=== PATIENT | female | born 1960 | race Caucasian/White ===

== ENCOUNTER 2019-12-15 22:32 | Emergency (ER) | payer BC ==
[~2019-12-15] VITALS: Ht 167 cm; Wt 60.5 kg
--- OUTSIDE RECORDS SUMMARY | 2019-12-15 22:39 | XMS REPORT | Continuity of Care Document ---
Author Organization Unknown Address Unknown Phone Unavailable Allergies There is no data. Medications There is no data. Problems There is no data. Procedures There is no data. Results Test Result Range LIPID PANEL - 11/17/18 08:32 CHOLESTEROL, TOTAL 209 mg/dL <200 HDL CHOLESTEROL 74 mg/dL >50 TRIGLYCERIDES 74 mg/dL <150 LDL-CHOLESTEROL 118 mg/dL (calc) NRG CHOL/HDLC RATIO 2.8 (calc) <5.0 NON HDL CHOLESTEROL 135 mg/dL (calc) <13 0 CMP - 11/17/18 08:32 GLUCOSE 89 mg/dL 65-99 UREA NITROGEN (BUN) 13 mg/dL 7-25 CREATININE 0.92 mg/dL 0.50-0.99 eGFR NON-AFR. BANGLADESHI 68 mL/min/1.73m2 > OR = 60 eGFR 78 mL/min/1.73m2 > OR = 60 BUN/CREATININE RATIO NOT APPLICABLE (calc) 6-22 SODIUM 134 mmol/L 135-146 POTASSIUM 3.8 mmol/L 3.5-5.3 CHLORIDE 98 mmol/L 98-110 CARBON DIOXIDE 29 mmol/L 20-32 CALCIUM 9.3 mg/dL 8.6-10.4 PROTEIN, TOTAL 6.7 g/dL 6.1-8.1 ALBUMIN 4.5 g/dL 3.6-5.1 GLOBULIN 2.2 g/dL (calc) 1.9-3.7 ALBUMIN/GLOBULIN RATIO 2.0 (calc) 1.0-2. 5 BILIRUBIN, TOTAL 0.6 mg/dL 0.2-1.2 ALKALINE PHOSPHATASE 41 U/L 33-130 AST 20 U/L 10-35 ALT 11 U/L 6-29 Complete blood count (CBC) with automate d white blood cell (WBC) differential - 12/15/19 09:32 Blood leukocytes automated count (number/volume) 4.1 10*3/uL 4.3-11.0 Blood erythrocytes automated count (number/volume) 4.36 10*6/uL 4.35-5.85 Venous blood hemoglobin measurement (mass/volume) 12.6 g/dL 11.5-16.0 Blood hematocrit (volume fraction) 38 % 35-52 Automated erythrocyte mean corpuscular volume 87 [ foz_us] 80-99 Automated erythrocyte mean corpuscular h emoglobin (mass per erythrocyte) 29 pg 25-34 Automated erythrocyte mean corpuscular h emoglobin concentration measurement (mass/volume) 33 g/dL 32-36 Automated erythrocyte distribution width ratio 12. 8 % 10.0- 14.5 Automated blood platelet count (count/volume) 245 10*3/uL 130-400 Automated blood platelet mean volume measurement 10.7 [foz_us] 7.4-10.4 Automated blood neutrophils/100 leukocytes 64 % 42-75 Automated blood lymphocytes/100 leukocytes 22 % 12-44 Blood monocytes/100 leukocytes 11 % 0-12 Automated blood eosinophils/100 leukocytes 2 % 0-10 Automated blood basophils/100 leukocytes 1 % 0-10 Blood neutrophils automated count (number/volume) 2.6 10*3 1.8-7.8 Blood lymphocytes automated count (number/volume) 0.9 10*3 1.0-4.0 Blood monocytes automated count (number/volume) 0. 5 10*3 0.0-1.0 Automated eosinophil count 0.1 10*3/uL 0 .0-0.3 Automated blood basophil count (count/volume) 0.1 10*3/uL 0.0-0.1 Comprehensive metabolic panel - 12/15/19 09:32 Serum or plasma sodium measurement (moles/volume) 131 mmol/L 135-145 Serum or plasma potassium measurement (moles/volume) 4.8 mmol/L 3.6-5.0 Serum or plasma chloride measurement (moles/volume) 92 mmol/L 98-107 Carbon dioxide 27 mmol/L 21-32 Serum or plasma anion gap determination (moles/volume) 12 mmol/L 5-14 Serum or plasma urea nitrogen measurement (mass/volume ) 7 mg/dL 7-18 Serum or plasma creatinine measurement (mass/volume) 0.91 mg/dL 0.60-1.30 Serum or plasma urea nitrogen/creatinine mass ratio 8 NRG Serum or plasma creatinine measurement w ith calculation of estimated glomerular filtration rate > NRG Serum or plasma glucose measurement (mass/volume) 108 mg/dL 70-105 Serum or plasma calcium measurement (mass/volume) 9.4 mg/dL 8.5-10.1 Serum or plasma total bilirubin measurement (mass/volu me) 0.5 mg/dL 0.1-1.0 Serum or plasma alkaline phosphatase owen surement (enzymatic activity/volume) 55 U/L 40-136 Serum or plasma aspartate aminotransfera se measurement (enzymatic activity/volume) 20 U/L 5-34 Serum or plasma alanine aminotransferase measurement (enzymatic activity/volume) 7 U/L 0-55 Serum or plasma protein measurement (mass/volume) 7.4 g/dL 6.4-8.2 Serum or plasma albumin measurement (mass/volume) 4.6 g/dL 3.2-4.5 Lipid 1996 panel - 12/15/19 09:32 Serum or plasma triglyceride measurement (mass/volume) 51 mg/dL <150 Serum or plasma cholesterol measurement (mass/volume) 197 mg/dL < 200 Serum or plasma cholesterol in HDL measurement (mass/v olume) 75 mg/dL 40-60 Cholesterol in LDL [mass/volume] in serum or plasma by direct assay 116 mg/dL 1-129 Serum or plasma cholesterol in VLDL measurement (mass/ volume) 10 mg/dL 5-40 Encounters ACCT No. Visit Date/Time Discharge Status Pt. Type Provider Facility Loc./Unit Complaint [id number] 11/23/2018 10:15:00 11/23/2018 23:59: 59 CLS Outpatient [facility] [id number] 11/17/2018 08:15:00 Document Registration [id number] 12/15/2019 22:34:[address] Emergency LUIS MAIN DO [facility] ER FS UPPER BACK PAIN/TIGHTING [id number] 12/15/2019 09:11:[address] Outpatient CHUN HADLEY MD [facility] LAB FS ANNUAL PHYSICAL EXAM
--- NOTE | 2019-12-15 23:08 | ED General ---
General Chief Complaint: General Problems/Pain Stated Complaint: UPPER BACK PAIN/TIGHTING Source of Information: Patient Exam Limitations: No Limitations History of Present Illness Date Seen by Provider: December 15, 2019 Time Seen by Provider: 22:50 Initial Comments 59-year-old female presents to the emergency room for evaluation of a posterior chest tightness that she's noticed on her back between her scapula since the early afternoon. Patient states that she has had no trauma and she's had no prior history of cardiac abnormalities. She is concerned about the discomfort. She has had a previous evaluation for possible cholecystitis with cholelithiasis and has a gallbladder ultrasound scheduled for 6 days from now. Patient has no history of previous cardiac problems or stents. She has no history of falls injuring her back. She is a very thin woman without any history of recent trauma. Patient has given informed consent for diagnostic and therapeutic services. She states his symptoms of discomfort in her epigastrium and right upper quadrant have been going on now for the past month and her physician is pursuing with a gallbladder sonogram. Timing/Duration: 12 Hours Severity: Moderate (midposterior back) Modifying Factors: improves with Movement Associated Systoms: Chest Pain (posterior chest discomfort "it's not really pain". Between the scapula. This is unassociated with physical activity) Allergies and Home Medications Allergies Coded Allergies: codeine (Verified Allergy, Unknown, 12/15/19) Patient Home Medication List Home Medication List Reviewed: Yes Review of Systems Review of Systems Constitutional: see HPI, other (feeling of discomfort between her scapula posteriorly no anterior chest wall pain. Patient does have a history of swelling in her right lower extremity but no significant discomfort or change recently. She denies any history of DVT or pulmonary emboli.) EENTM: no symptoms reported Respiratory: no symptoms reported Cardiovascular: chest pain (posterior discomfort between his scapula patient was told she has a leaky valve in her heart but no murmurs were auscultated on this examination), other (patient has a very thin build) Gastrointestinal: RUQ (discomfort chronically has been evaluated for gallbladder disease and has a gallbladder sonogram scheduled in 6 days) Genitourinary: no symptoms reported Musculoskeletal: back pain (midthoracic back discomfort between his scapula no history of trauma no radiculopathy) Skin: no symptoms reported Psychiatric/Neurological: Anxiety (secondary to the onset of posterior back discomfort) Hematologic/Lymphatic: No Symptoms Reported Immunological/Allergic: no symptoms reported Past [id number]-Jziodf Hx Past Med/Social Hx: Reviewed Nursing Past Med/Soc Hx Patient Social History Alcohol Use: Denies Use Recreational Drug Use: No Smoking Status: Never a Smoker 2nd Hand Smoke Exposure: No Recent Foreign Travel: No Contact w/Someone Who Travel: No Recent Hopitalizations: No Physical Abuse: No Sexual Abuse: No Past Medical History Surgeries: No Respiratory: No Cardiac: No Neurological: No Genitourinary: No Gastrointestinal: No Musculoskeletal: No Endocrine: No HEENT: No Cancer: No Psychosocial: No Integumentary: No Blood Disorders: No Physical Exam Vital Signs Vital Signs - First Documented 12/15/19 22:48 Temp 36.6 Pulse 97 Resp 16 B/P (MAP) 167/100 (122) Pulse Ox 100 O2 Delivery Room Air Capillary Refill : Less than 2 seconds Height, Weight, BMI Height: '" Weight: lbs. oz. kg; BMI Method: General Appearance: WD/WN, Anxious (about discomfort in her mid back posteriorl y), Mild Distress Eyes: Bilateral Eye Normal Inspection, Bilateral Eye PERRL, Bilateral Eye EOMI HEENT: PERRL/EOMI, Normal ENT Inspection, Pharynx Normal Neck: Full Range of Motion, Normal Inspection, Non Tender, Supple Respiratory: Chest Non Tender, Lungs Clear, Normal Breath Sounds, No Accessory Muscle Use, No Respiratory Distress Cardiovascular: Regular Rate, Rhythm, No Gallop, No JVD, No Murmur, Normal Peripheral Pulses, Other (left lower extremity with minimal edema 1+ over 4 compared to the right no evidence of DVT negative Homans) Gastrointestinal: Normal Bowel Sounds, No Organomegaly, No Pulsatile Mass, Non Tender, Soft, Other (history of right upper quadrant discomfort and is being evaluated for gallbladder disease with sonogram in 6 days) Back: Normal Inspection, No CVA Tenderness, No Vertebral Tenderness (has diffuse mid dorsal discomfort between the scapula. No point tenderness on the spinous processes) Extremity: Normal Capillary Refill, Normal Inspection, Normal Range of Motion, Non Tender, No Calf Tenderness, Pedal Edema (1+ over 4 on the left lower extremity) Neurologic/Psychiatric: Alert, Oriented x3, No Motor/Sensory Deficits, Normal Mood/Affect, laboratory supervisor II-XII Norm as Tested Reflexes: 2+ Bicep (R), 2+ Bicep (L), 2+ Knee (R), 2+ Knee (L) Skin: Normal Color, Warm/Dry Lymphatic: No Adenopathy Progress/Results/Core Measures Suspected Sepsis SIRS Temperature: Pulse: Respiratory Rate: Laboratory Tests 12/15/19 23:13: White Blood Count 5.4 Blood Pressure / Mean: Laboratory Tests 12/15/19 23:13: Creatinine 0.77, Platelet Count 233, Total Bilirubin 0.5 Results/Orders Lab Results Laboratory Tests Test 12/15/19 23:13 12/16/19 01:05 Range/Units White Blood Count 5.4 4.3-11.0 10^3/uL Red Blood Count 4.31 L 4.35-5.85 10^6/uL Hemoglobin 12.7 11.5-16.0 G/DL Hematocrit 38 35-52 % Mean Corpuscular Volume 88 80-99 FL Mean Corpuscular Hemoglobin 30 25-34 PG Mean Corpuscular Hemoglobin Concent 33 32-36 G/DL Red Cell Distribution Width 12.8 10.0-14.5 % Platelet Count 233 130-400 10^3/uL Mean Platelet Volume 10.8 H 7.4-10.4 FL Neutrophils (%) (Auto) 70 42-75 % Lymphocytes (%) (Auto) 21 12-44 % Monocytes (%) (Auto) 8 0-12 % Eosinophils (%) (Auto) 1 0-10 % Basophils (%) (Auto) 1 0-10 % Neutrophils # (Auto) 3.8 1.8-7.8 X 10^3 Lymphocytes # (Auto) 1.1 1.0-4.0 X 10^3 Monocytes # (Auto) 0.4 0.0-1.0 X 10^3 Eosinophils # (Auto) 0.1 0.0-0.3 10^3/uL Basophils # (Auto) 0.0 0.0-0.1 10^3/uL Neutrophils % (Manual) 75 % Lymphocytes % (Manual) 17 % Monocytes % (Manual) 4 % Eosinophils % (Manual) 4 % Sodium Level 124 *L 135-145 MMOL/L Potassium Level 4.1 3.6-5.0 MMOL/L Chloride Level 86 L 98-107 MMOL/L Carbon Dioxide Level 21 21-32 MMOL/L Anion Gap 17 H 5-14 MMOL/L Blood Urea Nitrogen 8 7-18 MG/DL Creatinine 0.77 0.60-1.30 MG/DL Estimat Glomerular Filtration Rate > 60 BUN/Creatinine Ratio 10 Glucose Level 120 H 70-105 MG/DL Calcium Level 9.3 8.5-10.1 MG/DL Corrected Calcium 8.5-10.1 MG/DL Magnesium Level 1.9 1.6-2.4 MG/DL Total Bilirubin 0.5 0.1-1.0 MG/DL Aspartate Amino Transf (AST/SGOT) 21 5-34 U/L Alanine Aminotransferase (ALT/SGPT) 11 0-55 U/L Alkaline Phosphatase 55 40-136 U/L Troponin I < 0.30 < 0.30 <0.30 NG/ML Total Protein 7.4 6.4-8.2 GM/DL Albumin 4.6 H 3.2-4.5 GM/DL Lipase 31 8-78 U/L My Orders Orders - LUIS MAIN DO Chest Pa/Lat (2 View) (12/15/19 23:00) Cbc And Manual Diff (12/15/19 23:00) Comprehensive Metabolic Panel (12/15/19 23:00) Troponin I Fs (12/15/19 23:00) Urinalysis (12/15/19 23:00) Lipase (12/15/19 23:00) Magnesium (12/15/19 23:00) Ns Iv 1000 Ml (Sodium Chloride 0.9%) (12/16/19 00:00) Ekg Tracing (12/15/19 23:50) Ekg Tracing (12/15/19 23:51) Ed Iv/Invasive Line Start (12/15/19 23:51) Troponin I Fs (12/16/19 01:00) Medications Given in ED Current Medications Medications Dose Ordered Sig/Kae Route Start Time Stop Time Status Last Admin Dose Admin Sodium Chloride 1,000 ml @ 100 mls/hr Q10H ONCE IV 12/16/19 00:00 12/16/19 09:59 12/16/19 00:01 100 MLS/HR Vital Signs/I&O 12/15/19 22:48 Temp 36.6 Pulse 97 Resp 16 B/P (MAP) 167/100 (122) Pulse Ox 100 O2 Delivery Room Air Capillary Refill : Progress Note : Time: 23:49 Progress Note Patient evaluation reveals a significant hyponatremia of 124. Patient also has a very elongated chest and no signs of abnormality on chest x-ray but a vertical heart. Patient will receive 1 L of normal saline and EKG is also been ordered. Departure Impression Primary Impression: Hyponatremia Additional Impressions: Chronic cholecystitis Atypical chest pain Disposition: 01 HOME, SELF-CARE Condition: Improved Departure-Patient Inst. Decision time for Depature: 01:45 Referrals: CHUN HADLEY MD (PCP/Family) Primary Care Physician Patient Instructions: Chest Pain That Is Not Caused by the Heart (DC), Gallstones (DC), Hyponatremia (DC) Add. Discharge Instructions: 59-year-old female with posterior chest wall pain and this could be related to acute on chronic cholecystitis. Patient is having a gallbladder sonogram in 5 more days. She also had significant hyponatremia with a 124 and has been given normal saline and will increase her sodium intake for the next 3 days. She will follow-up with Dr. Hadley from ongoing care. The patient had negative troponin 2 an EKG that was normal with the exception of a mild sinus arrhythmia. Patient has changed her diet possibly an reaction to possible gallbladder disease. She will continue to monitor her dietary intake and follow-up with Dr. Hadley. All discharge instructions reviewed with patient and/or family. Voiced understanding. Copy Copies To 1: CHUN HADLEY MD, ANTHONY H DO December 15, 2019 23:08
[2019-12-15 23:20] LABS: HEMATOCRIT 38 % (35-52); HEMOGLOBIN 12.7 G/DL (11.5-16.0); LYMPHOCYTES % (AUTO) 21 % (12-44); MEAN CORPUSCULAR HEMOGLOBIN 30 PG (25-34); MEAN CORPUSCULAR HGB CONC 33 G/DL (32-36); MEAN CORPUSCULAR VOLUME 88 FL (80-99); MEAN PLATELET VOLUME 10.8 FL (7.4-10.4); MONOCYTES % (AUTO) 8 % (0-12); NEUTROPHILS % (AUTO) 70 % (42-75); PLATELET COUNT 233 10^3/uL (130-400); RED CELL DISTRIBUTION WIDTH 12.8 % (10.0-14.5); WHITE BLOOD COUNT 5.4 10^3/uL (4.3-11.0)
[2019-12-15 23:21] LABS: BASOPHILS % (AUTO) 1 % (0-10); EOSINOPHILS # (AUTO) 0.1 10^3/uL (0.0-0.3); EOSINOPHILS % (AUTO) 1 % (0-10); LYMPHOCYTES # (AUTO) 1.1 X 10^3 (1.0-4.0); MONOCYTES # (AUTO) 0.4 X 10^3 (0.0-1.0); NEUTROPHILS # (AUTO) 3.8 X 10^3 (1.8-7.8)
[2019-12-15 23:36] LABS: EOSINOPHILS % (MANUAL) 4 %; LYMPHOCYTES % (MANUAL) 17 %; MONOCYTES % (MANUAL) 4 %; NEUTROPHILS % (MANUAL) 75 %
[2019-12-15 23:43] LABS: ALANINE AMINOTRANSFERASE 11 U/L (0-55); ALKALINE PHOSPHATASE 55 U/L (40-136); BILIRUBIN,TOTAL 0.5 MG/DL (0.1-1.0); BUN/CREATININE RATIO 10; CALCIUM 9.3 MG/DL (8.5-10.1); CARBON DIOXIDE 21 MMOL/L (21-32); CHLORIDE 86 MMOL/L (98-107); CREATININE SERUM 0.77 MG/DL (0.60-1.30); GFR ESTIMATED > 60; GLUCOSE 120 MG/DL (70-105); MAGNESIUM 1.9 MG/DL (1.6-2.4); POTASSIUM 4.1 MMOL/L (3.6-5.0)
[2019-12-15 23:44] LABS: ALBUMIN 4.6 GM/DL (3.2-4.5); LIPASE 31 U/L (8-78); TOTAL PROTEIN 7.4 GM/DL (6.4-8.2)
[2019-12-15 23:45] LABS: SODIUM 124 MMOL/L (135-145)
[2019-12-16] MEDS ORDERED: NS IV 1000 ML 1,000 ML IV ONE
[2019-12-16 01:51] VITALS: BP 144/93
--- NOTE | 2019-12-16 05:44 | Diagnostic Imaging Report ---
CLINICAL INDICATION: Patient with pain between shoulder blades. EXAM: Portable chest x-ray upright view. COMPARISONS: None. FINDINGS: Lungs/pleura: Lungs are clear. There is no pneumothorax. There is no pleural effusion. Mediastinum: Unremarkable. Pulmonary vasculature: Unremarkable. Heart: Unremarkable. Bones/extrathoracic soft tissue: Unremarkable. IMPRESSION: There is no radiographic evidence of acute cardiopulmonary process. Dictated by: Dictated on workstation # [id number]
== END 2019-12-16 02:01 | disposition home or self-care (01) ==
LOC: EDUNIT# 22:32 → ER FS 22:34
DX: E87.1 Hypo-osmolality and hyponatremia (principal); K81.1 Chronic cholecystitis; R07.89 Other chest pain; Z88.5 Allergy status to narcotic agent
CPT/HCPCS: 36415; 71046; 80053; 83690; 83735; 84484; 85007; 85027; 93005

== ENCOUNTER → 2019-12-15 | Outpatient (CLI) | payer BC ==
[2019-12-15 09:41] LABS: WHITE BLOOD COUNT 4.1 10^3/uL (4.3-11.0)
[2019-12-15 09:42] LABS: BASOPHILS # (AUTO) 0.1 10^3/uL (0.0-0.1); BASOPHILS % (AUTO) 1 % (0-10); EOSINOPHILS # (AUTO) 0.1 10^3/uL (0.0-0.3); EOSINOPHILS % (AUTO) 2 % (0-10); HEMATOCRIT 38 % (35-52); HEMOGLOBIN 12.6 G/DL (11.5-16.0); LYMPHOCYTES # (AUTO) 0.9 X 10^3 (1.0-4.0); LYMPHOCYTES % (AUTO) 22 % (12-44); MEAN CORPUSCULAR HEMOGLOBIN 29 PG (25-34); MEAN CORPUSCULAR HGB CONC 33 G/DL (32-36); MEAN CORPUSCULAR VOLUME 87 FL (80-99); MEAN PLATELET VOLUME 10.7 FL (7.4-10.4); MONOCYTES # (AUTO) 0.5 X 10^3 (0.0-1.0); MONOCYTES % (AUTO) 11 % (0-12); NEUTROPHILS # (AUTO) 2.6 X 10^3 (1.8-7.8); NEUTROPHILS % (AUTO) 64 % (42-75); PLATELET COUNT 245 10^3/uL (130-400); RED CELL DISTRIBUTION WIDTH 12.8 % (10.0-14.5)
[2019-12-15 10:03] LABS: ALANINE AMINOTRANSFERASE 7 U/L (0-55); ALKALINE PHOSPHATASE 55 U/L (40-136); BILIRUBIN,TOTAL 0.5 MG/DL (0.1-1.0); BUN/CREATININE RATIO 8; CALCIUM 9.4 MG/DL (8.5-10.1); CARBON DIOXIDE 27 MMOL/L (21-32); CHLORIDE 92 MMOL/L (98-107); CREATININE SERUM 0.91 MG/DL (0.60-1.30); GFR ESTIMATED > 60; GLUCOSE 108 MG/DL (70-105); POTASSIUM 4.8 MMOL/L (3.6-5.0); SODIUM 131 MMOL/L (135-145)
[2019-12-15 10:04] LABS: ALBUMIN 4.6 GM/DL (3.2-4.5); TOTAL PROTEIN 7.4 GM/DL (6.4-8.2)
[2019-12-15 15:10] LABS: CHOLESTEROL 197 MG/DL (< 200); HDL CHOLESTEROL 75 MG/DL (40-60); TRIGLYCERIDES 51 MG/DL (<150); VLDL CHOLESTEROL 10 MG/DL (5-40)
== END ==
LOC: LAB FS 09:11
PROVIDERS: ATTEND Family Medicine
DX: Z00.00 Encounter for general adult medical examination without abnormal findings (principal)
CPT/HCPCS: 36415; 80053; 80061; 85025

== ENCOUNTER → 2019-12-16 | Outpatient (CLI) | payer BC ==
[2019-12-16 14:31] LABS: CARBON DIOXIDE 24 MMOL/L (21-32); CHLORIDE 91 MMOL/L (98-107); POTASSIUM 4.8 MMOL/L (3.6-5.0); SODIUM 128 MMOL/L (135-145)
[2019-12-16 14:32] LABS: BUN/CREATININE RATIO 8; CALCIUM 9.1 MG/DL (8.5-10.1); CREATININE SERUM 0.88 MG/DL (0.60-1.30); GFR ESTIMATED > 60; GLUCOSE 179 MG/DL (70-105)
== END ==
LOC: LAB FS 13:28
PROVIDERS: ATTEND Family Medicine
DX: E87.1 Hypo-osmolality and hyponatremia (principal)
CPT/HCPCS: 36415; 80048

== ENCOUNTER → 2019-12-21 | Outpatient (CLI) | payer BC ==
[2019-12-21 09:53] LABS: BUN/CREATININE RATIO 8; CARBON DIOXIDE 27 MMOL/L (21-32); CHLORIDE 93 MMOL/L (98-107); CREATININE SERUM 0.85 MG/DL (0.60-1.30); GFR ESTIMATED > 60; GLUCOSE 93 MG/DL (70-105); POTASSIUM 4.4 MMOL/L (3.6-5.0); SODIUM 131 MMOL/L (135-145)
[2019-12-21 09:54] LABS: CALCIUM 9.2 MG/DL (8.5-10.1)
== END ==
LOC: LAB FS 08:52
PROVIDERS: ATTEND Family Medicine
DX: E87.1 Hypo-osmolality and hyponatremia (principal)
CPT/HCPCS: 36415; 80048

== ENCOUNTER → 2019-12-22 | Outpatient (CLI) | payer BC ==
--- NOTE | 2019-12-22 09:38 | Diagnostic Imaging Report ---
INDICATION: Right upper quadrant pain. PROCEDURE: Ultrasound abdomen complete. TECHNIQUE: Multiple real-time grayscale images were obtained of the abdomen in various projections. The liver is normal in size at 13.7 cm. No discrete liver mass is detected. The portal vein is patent and shows normal direction of flow. Gallbladder does contain a non-mobile non-shadowing echogenic focus, which may represent a small polyp. There is no wall thickening. No biliary duct dilatation is seen. Pancreas is unremarkable. Spleen is normal in size at 8 cm. Aorta is nonaneurysmal. The IVC is patent. Both the right and left kidneys demonstrate normal cortical thickness and echogenicity. No calculi or hydronephrosis is seen. There is no ascites. IMPRESSION: Unremarkable abdominal ultrasound. Dictated by: Dictated on workstation # [id number]
== END ==
LOC: CARD 07:58 → EDUNIT# 12-23 08:00
PROVIDERS: ATTEND Family Medicine
DX: R10.11 Right upper quadrant pain (principal)
CPT/HCPCS: 76700; 93306

== ENCOUNTER → 2020-02-21 | Outpatient (CLI) | payer BC ==
[2020-02-21 09:52] LABS: CHLORIDE 96 MMOL/L (98-107); POTASSIUM 4.5 MMOL/L (3.6-5.0); SODIUM 132 MMOL/L (135-145)
[2020-02-21 09:53] LABS: BUN/CREATININE RATIO 15; CALCIUM 9.5 MG/DL (8.5-10.1); CARBON DIOXIDE 26 MMOL/L (21-32); CREATININE SERUM 0.84 MG/DL (0.60-1.30); GFR ESTIMATED > 60; GLUCOSE 93 MG/DL (70-105)
== END ==
LOC: LAB FS 09:17
PROVIDERS: ATTEND Family Medicine
DX: E87.1 Hypo-osmolality and hyponatremia (principal)
CPT/HCPCS: 36415; 80048

== ENCOUNTER → 2020-02-24 | Outpatient (CLI) | payer BC ==
--- NOTE | 2020-02-24 11:33 | Diagnostic Imaging Report ---
INDICATION: Hyponatremia. COMPARISON: 12/15/2019. TECHNIQUE: 2 radiographs of the chest dated 02/24/2020. FINDINGS: The cardiac silhouette is within normal limits in size. No significant pulmonary vascular congestion. The lungs are clear of focal pulmonary opacity. No pleural effusion. No pneumothorax. No acute osseous abnormality. IMPRESSION: Stable examination without acute cardiopulmonary abnormality. Dictated by: Dictated on workstation # [id number]
== END ==
LOC: RAD FS 11:13
PROVIDERS: ATTEND Family Medicine
DX: E87.1 Hypo-osmolality and hyponatremia (principal)
CPT/HCPCS: 71046

== ENCOUNTER → 2020-03-05 | Outpatient (CLI) | payer BC ==
--- NOTE | 2020-03-05 15:03 | Diagnostic Imaging Report ---
INDICATION: Left ankle pain and swelling. TIME OF EXAM: 2:48 PM. TECHNIQUE: Three views of the left ankle were obtained. FINDINGS: The alignment is normal. The ankle mortise is well maintained. The talar dome is smooth. No fracture or dislocation is identified. There appears to be some mild soft tissue swelling about the lateral and medial ankle. IMPRESSION: Soft tissue swelling. No acute bony abnormality is detected. Dictated by: Dictated on workstation # [id number]
== END ==
LOC: RAD FS 14:39
PROVIDERS: ATTEND Family Medicine
DX: M25.472 Effusion, left ankle (principal)
CPT/HCPCS: 73610

== ENCOUNTER → 2020-03-09 | Outpatient (CLI) | payer BC ==
[2020-03-09 09:23] LABS: BUN/CREATININE RATIO 12; CALCIUM 9.4 MG/DL (8.5-10.1); CARBON DIOXIDE 27 MMOL/L (21-32); CHLORIDE 97 MMOL/L (98-107); CREATININE SERUM 0.92 MG/DL (0.60-1.30); GFR ESTIMATED > 60; GLUCOSE 101 MG/DL (70-105); POTASSIUM 4.4 MMOL/L (3.6-5.0); SODIUM 133 MMOL/L (135-145)
== END ==
LOC: LAB FS 08:42
PROVIDERS: ATTEND Family Medicine
DX: E87.1 Hypo-osmolality and hyponatremia (principal)
CPT/HCPCS: 36415; 80048

== ENCOUNTER → 2021-05-16 | Outpatient (CLI) | payer BC ==
[2021-05-16 11:10] LABS: CHLORIDE 104 MMOL/L (98-107); POTASSIUM 4.3 MMOL/L (3.6-5.0); SODIUM 138 MMOL/L (135-145)
[2021-05-16 11:11] LABS: ALANINE AMINOTRANSFERASE 7 U/L (0-55); ALBUMIN 4.7 GM/DL (3.2-4.5); ALKALINE PHOSPHATASE 50 U/L (40-136); BILIRUBIN,TOTAL 0.6 MG/DL (0.1-1.0); BUN/CREATININE RATIO 11; CALCIUM 9.7 MG/DL (8.5-10.1); CARBON DIOXIDE 27 MMOL/L (21-32); CREATININE SERUM 0.99 MG/DL (0.60-1.30); GFR ESTIMATED 57; GLUCOSE 98 MG/DL (70-105); TOTAL PROTEIN 7.3 GM/DL (6.4-8.2)
[2021-05-16 15:05] LABS: CHOLESTEROL 210 MG/DL (< 200); HDL CHOLESTEROL 67 MG/DL (40-60); TRIGLYCERIDES 67 MG/DL (<150); VLDL CHOLESTEROL 13 MG/DL (5-40)
== END ==
LOC: LAB FS 08:52
PROVIDERS: ATTEND Family Medicine
DX: Z00.00 Encounter for general adult medical examination without abnormal findings (principal)
CPT/HCPCS: 36415; 80053; 80061

== ENCOUNTER → 2021-06-04 | Outpatient (CLI) | payer BC ==
--- NOTE | 2021-06-04 10:43 | Diagnostic Imaging Report ---
EXAMINATION: CT head without contrast. TECHNIQUE: Multiple contiguous axial images were obtained through the brain without the use of intravenous contrast. All CT scans use one or more of the following dose optimizing techniques: automated exposure control, MA and/or KvP adjustment based on patient size and exam type or iterative reconstruction. HISTORY: Headache. COMPARISON: None available. FINDINGS: The ventricles and sulci are normal. No abnormal attenuation of brain parenchyma is present. No acute intracranial hemorrhage or abnormal extra-axial fluid collections are present. No hyperdense vessel. The calvarium is intact. The mastoid air cells are clear. The visualized paranasal sinuses are clear. The orbits are normal. IMPRESSION: No acute intracranial abnormality. Dictated by: Dictated on workstation # [id number]
== END ==
LOC: RAD FS 08:56
PROVIDERS: ATTEND Family Medicine
DX: R51.9 Headache, unspecified (principal)
CPT/HCPCS: 70450